=== PATIENT | female | born 1940 | race Caucasian/White ===

== ENCOUNTER 2017-09-04 07:07 | Inpatient (IN) | payer MEDICARE ==
[~2017-09-04] VITALS: Ht 167.6 cm; Wt 68.9 kg
[~2017-09-04 07:07] MED LIST: ATOR10TA PO; CIP500T PO; CYAN100023 PO; FOLI1TAB51 PO; TRIATAB3 PO
[2017-09-04 08:35] LABS: Basophils # (auto) 0 uL; Basophils % (auto) 0.5 % (0.0-2.0); Eosinophils # (auto) 0 uL; Eosinophils % (auto) 0.5 % (0.0-7.0); Hematocrit 43.5 % (36.0-46.0); Hemoglobin 14.7 g/dL (12.2-16.2); Lymphocytes % (auto) 15.1 % (10.0-50.0); Mean Corpuscular Hemoglobin 32.7 pg (28.0-32.0); Mean Corpuscular Hgb Conc. 33.7 g/dL (32.0-36.0); Monocytes # (auto) 0.5 uL; Monocytes % (auto) 7.3 % (0.0-12.0); Neutrophils # (auto) 5.1 uL; Neutrophils % (auto) 76.6 % (37.0-80.0); Platelet Count (auto) 272 10^3/uL (140-450); Red Blood Cells 4.49 10^6/uL (4.0-5.20); White Blood Cell 6.7 10^3/uL (4.4-10.8)
[2017-09-04 08:46] LABS: Albumin 3.6 g/dL (3.4-5.0); Calcium 9.5 mg/dL (8.5-10.1); Potassium 4.1 mmol/L (3.5-5.1)
[2017-09-04 08:47] LABS: Bilirubin, Total 0.4 mg/dL (0.2-1.0); Total Protein 7.2 g/dL (6.4-8.2)
[2017-09-04 08:54] LABS: Urine WBC None Seen /hpf (0 - 5)
[2017-09-04 09:06] LABS: Urine Bacteria NONE SEEN /hpf (None Seen); Urine Blood Negative /uL (Negative); Urine Specific Gravity 1.011 (1.001-1.035)
[2017-09-04] MEDS ORDERED: SODIUM CHLORIDE 0.9% 1,000 ML IV ONE ×2 (11:52)
[2017-09-04] MEDS ORDERED: VANCOMYCIN PER PHARMACY 0 MG IV SCH ×2 (12:00→13:45)
[2017-09-04] MEDS: VANCOMYCIN 750 MG in D5W 5% 250 ML IV SCH (13:00)
[2017-09-04] MEDS ORDERED: TEMAZEPAM 15 MG CAP PO PRN (13:45)
[2017-09-04] MEDS ORDERED: ONDANSETRON HCL 4 MG/2 ML VIAL IV PRN (13:45)
[2017-09-04] MEDS ORDERED: HYDROcodone-ACET 5/325MG TAB PO PRN (13:45)
[2017-09-04] MEDS ORDERED: LEVOFLOXACIN 500MG 100 ML IV ONE (13:45)
[2017-09-04] MEDS ORDERED: MORPHINE SULFATE 4 MG/ML SYR/VIAL IV PRN (13:45)
[2017-09-04 16:07] LABS: INR 1.04 (0.9-1.15); Prothrombin Time 11.3 sec (9.37-12.3)
[2017-09-04 17:00] VITALS: BP 138/80
[2017-09-04 17:11] VITALS: BP 138/80
[2017-09-04] MEDS: SODIUM CHLORIDE 0.9% 1,000 ML IV SCH (17:39)
[2017-09-04 20:00] VITALS: BP 146/72
[2017-09-04 22:00] VITALS: BP 146/72
[2017-09-04] MEDS: FAMOTIDINE 20 MG TAB PO SCH (22:20)
[2017-09-05 05:06] VITALS: BP 149/81
[2017-09-05 05:53] LABS: Basophils # (auto) 0 uL; Basophils % (auto) 0.5 % (0.0-2.0); Eosinophils # (auto) 0.1 uL; Hematocrit 39.2 % (36.0-46.0); Hemoglobin 13.4 g/dL (12.2-16.2); Lymphocytes # (auto) 1.4 uL; Mean Corpuscular Hemoglobin 33.1 pg (28.0-32.0); Mean Corpuscular Hgb Conc. 34.1 g/dL (32.0-36.0); Mean Corpuscular Volume 97.3 fL (80.0-100.0); Monocytes # (auto) 0.5 uL; Monocytes % (auto) 9.3 % (0.0-12.0); Neutrophils # (auto) 3.4 uL; Neutrophils % (auto) 62.2 % (37.0-80.0); Platelet Count (auto) 234 10^3/uL (140-450); Red Blood Cells 4.03 10^6/uL (4.0-5.20); Red Cell Distribution Width 13.9 % (11.8-14.3); White Blood Cell 5.5 10^3/uL (4.4-10.8)
[2017-09-05] MEDS: SODIUM CHLORIDE 0.9% 1,000 ML IV SCH ×2 (05:54→23:12)
[2017-09-05 06:22] LABS: Albumin 2.9 g/dL (3.4-5.0); BUN/Creatinine Ratio 16.4; Bilirubin, Total 0.5 mg/dL (0.2-1.0); Calcium 8.3 mg/dL (8.5-10.1); Potassium 3.5 mmol/L (3.5-5.1); Total Protein 6.1 g/dL (6.4-8.2)
[2017-09-05 06:33] LABS: Cholesterol 182 mg/dL (< 200); HDL Cholesterol 40 mg/dL (40-59); Triglycerides 148 mg/dL (< 150)
[2017-09-05] MEDS: VANCOMYCIN 750 MG in D5W 5% 250 ML IV SCH (06:44)
[2017-09-05 09:00] VITALS: BP 133/72
[2017-09-05] MEDS: LEVOFLOXACIN 500MG 100 ML IV SCH (10:03)
[2017-09-05] MEDS: TRIAMTERENE/HCTZ 37.5/25 MG CAP PO SCH (10:10)
[2017-09-05] MEDS: MULTIPLE VITAMIN TAB PO SCH (10:11)
[2017-09-05] MEDS: FAMOTIDINE 20 MG TAB PO SCH ×2 (10:11→22:05)
[2017-09-05] MEDS: ACETAMINOPHEN 325 MG TAB PO PRN ×2 (11:12→17:42)
[2017-09-05 13:36] VITALS: BP 141/73
[2017-09-05 16:44] VITALS: BP 137/77
[2017-09-05] MEDS ORDERED: GAB100C (17:43)
[2017-09-05] MEDS ORDERED: TRIA75TA55 (17:43)
[2017-09-05] MEDS ORDERED: LEVO-28 (17:43)
[2017-09-05] MEDS ORDERED: NITR1CAP36 (17:43)
[2017-09-05 20:00] VITALS: BP 147/81
[2017-09-05 22:00] VITALS: BP 147/81
[2017-09-06 05:46] VITALS: BP 156/80
[2017-09-06 09:06] VITALS: BP 143/76
[2017-09-06] MEDS: LEVOFLOXACIN 500MG 100 ML IV SCH (09:44)
[2017-09-06] MEDS: FAMOTIDINE 20 MG TAB PO SCH (09:46)
[2017-09-06] MEDS: TRIAMTERENE/HCTZ 37.5/25 MG CAP PO SCH (09:46)
[2017-09-06] MEDS: MULTIPLE VITAMIN TAB PO SCH (09:46)
[2017-09-06 12:40] VITALS: BP 159/86
== END 2017-09-06 14:40 | disposition home or self-care (01) | DRG 392 ==
LOC: ER 07:07 → OVERFLOW 07:08 → CENTRAL 14:46
PROVIDERS: ADMIT Internal Medicine; ATTEND Internal Medicine
DX: K57.32 Diverticulitis of large intestine without perforation or abscess without bleeding (principal); E78.5 Hyperlipidemia, unspecified; I12.9 Hypertensive chronic kidney disease with stage 1 through stage 4 chronic kidney disease, or unspecified chronic kidney disease; M19.90 Unspecified osteoarthritis, unspecified site; N18.2 Chronic kidney disease, stage 2 (mild); Z90.710 Acquired absence of both cervix and uterus; Z88.0 Allergy status to penicillin; Z88.8 Allergy status to other drugs, medicaments and biological substances
CPT/HCPCS: 36415; 74176; 80053; 81001; 82465; 83605; 83718; 84478; 85025; 85610; 87040; 93005; 96361; 96374; 96375; J1956; J7060

== ENCOUNTER → 2018-01-25 | Outpatient (CLI) | payer MEDICARE ==
[~2018-01-25] MED LIST changes: -CIP500T PO; +GAB100C; +TRIA75TA55; -TRIATAB3 PO
== END | disposition home or self-care (01) ==
LOC: XYW 08:47
PROVIDERS: ATTEND Internal Medicine
DX: R94.31 Abnormal electrocardiogram [ECG] [EKG] (principal); I12.9 Hypertensive chronic kidney disease with stage 1 through stage 4 chronic kidney disease, or unspecified chronic kidney disease; N18.3 Chronic kidney disease, stage 3 (moderate); E78.5 Hyperlipidemia, unspecified
CPT/HCPCS: 93306

== ENCOUNTER 2018-07-01 07:29 | Emergency (ER) | payer MEDICARE ==
[~2018-07-01] VITALS: Ht 167.6 cm; Wt 67.6 kg
[2018-07-01 08:05] LABS: Urine WBC None Seen /hpf (0 - 5)
[2018-07-01 08:17] LABS: Basophils # (auto) 0 uL; Basophils % (auto) 0.3 % (0.0-2.0); Eosinophils # (auto) 0.1 uL; Hematocrit 44.9 % (36.0-46.0); Hemoglobin 14.6 g/dL (12.2-16.2); Lymphocytes # (auto) 1.1 uL; Lymphocytes % (auto) 15.8 % (10.0-50.0); Mean Corpuscular Hemoglobin 31.9 pg (28.0-32.0); Mean Corpuscular Hgb Conc. 32.6 g/dL (32.0-36.0); Monocytes # (auto) 0.7 uL; Monocytes % (auto) 9.8 % (0.0-12.0); Neutrophils # (auto) 5.1 uL; Neutrophils % (auto) 73.1 % (37.0-80.0); Platelet Count (auto) 254 10^3/uL (140-450); Red Blood Cells 4.58 10^6/uL (4.0-5.20); Red Cell Distribution Width 15.5 % (11.8-14.3); White Blood Cell 6.9 10^3/uL (4.4-10.8)
[2018-07-01 08:20] LABS: Urine Bacteria NONE SEEN /hpf (None Seen); Urine Blood Negative /uL (Negative); Urine Specific Gravity 1.004 (1.001-1.035)
[2018-07-01] MEDS ORDERED: SODIUM CHLORIDE 0.9% 500 ML IVB ONE (08:24)
[2018-07-01] MEDS ORDERED: SODIUM CHLORIDE 0.9% 1,000 ML IV ONE (08:24)
[2018-07-01] MEDS ORDERED: MORPHINE SULFATE 10 MG/ML INJ 1ML SDV IV ONE (08:30)
[2018-07-01] MEDS ORDERED: cefTRIAXone 1GM/50ML D5W 50 ML IV ONE (08:30)
[2018-07-01] MEDS ORDERED: PROMETHAZINE HCL 25 MG/ML 1ML IV PRN (08:30)
[2018-07-01 08:33] LABS: Alanine Aminotransferase 22 U/L (13-56); Albumin 3.7 g/dL (3.4-5.0); Anion Gap 7 (5-15); Aspartate Aminotransferase 13 U/L (15-37); BUN/Creatinine Ratio 9.5; Blood Urea Nitrogen 11 mg/dL (7-18); Calcium 9.2 mg/dL (8.5-10.1); Carbon Dioxide 28 mmol/L (21-32); Chloride 102 mmol/L (98-107); GFR African American 58 mL/min; GFR Non-African American 48 mL/min; Glucose 111 mg/dL (74-106); Potassium 3.9 mmol/L (3.5-5.1); Sodium 137 mmol/L (136-145)
[2018-07-01 08:38] LABS: Alkaline Phosphatase 91 U/L (45-117); Bilirubin, Total 0.4 mg/dL (0.2-1.0); Total Protein 7.9 g/dL (6.4-8.2)
[2018-07-01 09:04] VITALS: BP 141/79
[2018-07-01 09:30] LABS: Magnesium 2.5 mg/dL (1.6-2.6)
== END 2018-07-01 10:35 | disposition home or self-care (01) ==
LOC: ER 07:29
DX: K57.92 Diverticulitis of intestine, part unspecified, without perforation or abscess without bleeding (principal); I10 Essential (primary) hypertension; E78.5 Hyperlipidemia, unspecified; Z90.710 Acquired absence of both cervix and uterus; Z88.0 Allergy status to penicillin
CPT/HCPCS: 36415; 71046; 74176; 80053; 81001; 83690; 83735; 84443; 84484; 85025; 93005; 94761; 96365; 99284; J0696; J2270; J7030; J7040

== ENCOUNTER 2020-05-07 07:56 | Inpatient (IN) | payer MEDICARE ==
[~2020-05-07] VITALS: Ht 167.6 cm; Wt 67.7 kg
[2020-05-07] MEDS ORDERED: methylPREDNISolone SOD SUCC 125 MG/2 ML VL IV ONE (09:45)
[2020-05-07] MEDS ORDERED: ZINC SULFATE 220mg CAP or TAB PO ONE (09:45)
[2020-05-07] MEDS ORDERED: ASCORBIC ACID 500 MG TAB PO ONE (09:45)
[2020-05-07 10:05] LABS: Basophils # (auto) 0 10 ^3/uL (0-0.2); Basophils % (auto) 0.5 % (0.0-2.0); Eosinophils # (auto) 0 10 ^3/uL (0-0.8); Hemoglobin 15.2 g/dL (12.2-16.2); Lymphocytes # (auto) 0.7 10 ^3/uL (0.4-5.4); Mean Corpuscular Hgb Conc. 33.8 g/dL (32.0-36.0); Mean Corpuscular Volume 97.8 fL (80.0-100.0); Monocytes # (auto) 0.5 10 ^3/uL (0-1.3); Monocytes % (auto) 9.7 % (0.0-12.0); Neutrophils # (auto) 3.8 10 ^3/uL (1.6-8.6); Neutrophils % (auto) 75.8 % (37.0-80.0); Nucleated Red Blood Cells % 0.3 %; Platelet Count (auto) 187 10^3/uL (140-450); Red Cell Distribution Width 13.9 % (11.8-14.3)
[2020-05-07 10:25] LABS: Albumin 3.7 g/dL (3.4-5.0); Calcium 9.1 mg/dL (8.5-10.1); Potassium 3.9 mmol/L (3.5-5.1)
[2020-05-07 10:31] LABS: BUN/Creatinine Ratio 24.4; Bilirubin, Total 0.4 mg/dL (0.2-1.0); Total Protein 7.4 g/dL (6.4-8.2)
[2020-05-07] MEDS ORDERED: NITROGLYCERIN 0.4 MG SL TAB SL PRN (11:30)
[2020-05-07] MEDS ORDERED: MORPHINE SULF INJ 2 MG/ML SYRINGE 1ML IV PRN (11:30)
[2020-05-07] MEDS ORDERED: SODIUM CHLORIDE 0.9% 1,000 ML IV SCH (11:30)
[2020-05-07] MEDS ORDERED: ATOR40TA52 PO (12:10)
[2020-05-07] MEDS ORDERED: ZINC220C8 PO (12:10)
[2020-05-07] MEDS ORDERED: TURM500C3 PO (12:10)
[2020-05-07] MEDS ORDERED: LOSA-69 PO (12:10)
[2020-05-07] MEDS ORDERED: IBUP200C3 PO (12:10)
[2020-05-07] MEDS ORDERED: AMLO-483 PO (12:10)
--- NOTE | 2020-05-07 12:50 | NUR ---
Telemetry admit from [facility] GIVENSGEORGE Ram admitted to Telemetry unit after SBAR received. Patient oriented to Arielle Fletcher, primary RN, unit, room, bed, and unit policies regarding patient care and visiting hours. Patient now on continuous telemetry monitoring, tele box #4 and telemetry reading on arrival to unit is SR @ 76. Bed set to lowest position/locked, bedside rails up x2, call light within reach. Instructed patient to call for assistance. Will continue to monitor q1hr and prn.
[2020-05-07 12:54] VITALS: BP 154/81
[2020-05-07 13:00] VITALS: BP 154/81
[2020-05-07 17:00] VITALS: BP 137/79
--- NOTE | 2020-05-07 19:10 | NUR ---
OPENING NOTE- NOC SHIFT ASSUMED PATIENT CARE. PATIENT IS ALERT AND ORIENTED X4, ANSWERS IN COMPLETE SENTENCES AND MAKES APPROPRIATE EYE CONTACT. PATIENT IS RESTING IN BED. BED IS LOCKED AT LOWEST POSITION, BED RAILS UP X2 AND HEAD OF BED IS UP >30 DEGREES. DISCUSSED POC WITH PATIENT AND INSTRUCTED PATIENT TO CALL USING CALL LIGHT PRN. BEDSIDE TALBE WITHIN REACH, CALL LIGHT WITHIN REACH. PATIENT DENIES SOB OR PAIN. PATIENT STATES THAT SHE IS "MORE WORRIED" ABOUT HER SON WHO IS SHARING A ROOM WITH HER AN WHOM IS ALSO ADMITTED. WILL CONTINUE TO MONITOR Q1H AND PRN.
[2020-05-07 20:00] VITALS: BP 116/65
[2020-05-07 22:00] VITALS: BP 116/65
[2020-05-07] MEDS: DOXYCYCLINE 100MG/250ML 250 ML IV SCH (22:04)
--- NOTE | 2020-05-07 22:10 | NUR ---
PATIENT UP TO BATHROOM. PATIENT AMBULATES INDEPENDENTLY. STEADY GAIT NOTED.
[2020-05-08 05:00] VITALS: BP 133/66
[2020-05-08 05:56] LABS: Basophils # (auto) 0 10 ^3/uL (0-0.2); Eosinophils # (auto) 0 10 ^3/uL (0-0.8); Hematocrit 42.6 % (36.0-46.0); Hemoglobin 14.2 g/dL (12.2-16.2); Lymphocytes # (auto) 0.7 10 ^3/uL (0.4-5.4); Lymphocytes % (auto) 17.1 % (10.0-50.0); Mean Corpuscular Hemoglobin 32.7 pg (28.0-32.0); Mean Corpuscular Hgb Conc. 33.2 g/dL (32.0-36.0); Mean Corpuscular Volume 98.4 fL (80.0-100.0); Monocytes # (auto) 0.5 10 ^3/uL (0-1.3); Monocytes % (auto) 11.2 % (0.0-12.0); Neutrophils # (auto) 3.1 10 ^3/uL (1.6-8.6); Neutrophils % (auto) 71.7 % (37.0-80.0); Nucleated Red Blood Cells % 0.1 %; Platelet Count (auto) 198 10^3/uL (140-450); Red Blood Cells 4.33 10^6/uL (4.0-5.20); Red Cell Distribution Width 13.8 % (11.8-14.3); White Blood Cell 4.3 10^3/uL (4.4-10.8)
[2020-05-08 06:14] LABS: Potassium 4.5 mmol/L (3.5-5.1)
[2020-05-08 06:27] LABS: Albumin 3.1 g/dL (3.4-5.0); BUN/Creatinine Ratio 30.5; Bilirubin, Total 0.3 mg/dL (0.2-1.0); Calcium 8.8 mg/dL (8.5-10.1); Total Protein 6.6 g/dL (6.4-8.2)
[2020-05-08 09:00] VITALS: BP 126/78
[2020-05-08] MEDS: ASCORBIC ACID 1,000 MG TAB PO SCH (09:23)
[2020-05-08] MEDS: ZINC SULFATE 220mg CAP or TAB PO SCH (09:23)
[2020-05-08] MEDS: DOXYCYCLINE 100MG/250ML 250 ML IV SCH ×2 (09:23→22:52)
[2020-05-08] MEDS: CHOLECALCIFEROL (VITD3) 2,000 UNIT CAP PO SCH (09:23)
[2020-05-08] MEDS: ENOXAPARIN SOD 40 MG/0.4 ML SYRINGE SC SCH (09:24)
[2020-05-08] MEDS: ACETAMINOPHEN 500 MG TAB PO PRN ×2 (09:24→15:33)
[2020-05-08 13:00] VITALS: BP 114/68
[2020-05-08] MEDS ORDERED: IOHEXOL 350 MG/ML 100ML IJ ONE (13:56)
--- NOTE | 2020-05-08 15:00 | NUR ---
NEW 2O G IV insertion IV access obtained, via clean sterile technique by inserting 20 gauge catheter at RIGHT FOREARM after 1 attempt(s). IV secured properly. No trauma to site. Patient tolerated well.IV FOR CT ANGIO OF CHEST WITH CONTRAST
[2020-05-08] MEDS ORDERED: DEXTROSE (50%) 50ML SYRG IV PRN (15:30)
[2020-05-08] MEDS ORDERED: DexAMETHasone SOD PHOS 10MG/1ML VIAL INJ IV ONE (15:30)
[2020-05-08 17:00] VITALS: BP 141/74
[2020-05-08] MEDS: InsuLIN REG 1unit/0.01ml Soln (100units/ml) SC SCH ×2 (17:00→23:14)
--- NOTE | 2020-05-08 17:30 | NUR ---
CT ANGIO PATIENT TRANSPORTED VIA WC TO RADIOLOGY NO DISTRESS.
--- NOTE | 2020-05-08 17:45 | NUR ---
RETURNED FROM CT ANGIO PATIENT TOLERATED WELL, DENIED PAIN, NO DISTRESS.
[2020-05-08] MEDS: ACCU-CHEK COMFORT CURVE STRIP VI SCH ×2 (18:59→22:00)
[2020-05-08 20:00] VITALS: BP 134/69
[2020-05-08 22:00] VITALS: BP 134/69
[2020-05-08] MEDS: BUDESONIDE (INHALATION) 180 MCG IH IN SCH (22:07)
[2020-05-08] MEDS: ALBUTEROL SULF HFA 90MCG INH 200DOSE IN SCH (22:07)
[2020-05-09] VITALS (7 sets, daily range): BP systolic 118–141; BP diastolic 69–74
--- NOTE | 2020-05-09 03:36 | NUR ---
Patient is resting in bed with eyes closed, no distress note, on 2LNC saturating at 96%. Patient denies pain.
[2020-05-09] MEDS: ACCU-CHEK COMFORT CURVE STRIP VI SCH ×4 (06:50→21:43)
[2020-05-09] MEDS: InsuLIN REG 1unit/0.01ml Soln (100units/ml) SC SCH ×4 (06:55→21:46)
[2020-05-09 07:17] LABS: Albumin 2.9 g/dL (3.4-5.0); BUN/Creatinine Ratio 25.3; Bilirubin, Total 0.4 mg/dL (0.2-1.0); Calcium 8.4 mg/dL (8.5-10.1); Total Protein 6.4 g/dL (6.4-8.2)
[2020-05-09] MEDS: BUDESONIDE (INHALATION) 180 MCG IH IN SCH ×2 (08:58→22:02)
[2020-05-09] MEDS: ALBUTEROL SULF HFA 90MCG INH 200DOSE IN SCH ×3 (08:58→22:02)
[2020-05-09] MEDS: DOXYCYCLINE 100MG/250ML 250 ML IV SCH ×2 (09:49→21:43)
[2020-05-09] MEDS: ZINC SULFATE 220mg CAP or TAB PO SCH (09:49)
[2020-05-09] MEDS: DexAMETHasone SOD PHOS 10MG/1ML VIAL INJ IV SCH (09:49)
[2020-05-09] MEDS: CHOLECALCIFEROL (VITD3) 2,000 UNIT CAP PO SCH (09:50)
[2020-05-09] MEDS: ENOXAPARIN SOD 40 MG/0.4 ML SYRINGE SC SCH (09:50)
[2020-05-09] MEDS: PANTOPRAZOLE 40 MG TAB PO SCH (09:50)
[2020-05-09] MEDS: ASCORBIC ACID 1,000 MG TAB PO SCH (09:50)
[2020-05-09] MEDS: ACETAMINOPHEN 500 MG TAB PO PRN (10:11)
[2020-05-09] MEDS ORDERED: POTASSIUM CHL 10 Meq TABLET PO ONE (12:45)
[2020-05-09] MEDS ORDERED: FUROSEMIDE 20 MG/2 ML VIAL IV ONE (12:45)
[2020-05-09] MEDS ORDERED: REMDESIVIR 200 MG in NS 210ml LOADING DOSE ADULT IV ONE (17:00)
--- NOTE | 2020-05-09 17:45 | NUR ---
PRE-INFUSION VITAL SIGNS BP 118/70 HR 79
--- NOTE | 2020-05-09 18:00 | NUR ---
15 MINUTE INFUSION VITAL SIGNS BP 123/79 HR 62
--- NOTE | 2020-05-09 18:45 | NUR ---
LATE ENTRY POST-INFUSION VITAL SIGNS BP 140/81 HR0 69
--- NOTE | 2020-05-09 19:30 | NUR ---
Opening Shift Note Received report from jacob Whitten RN. Assumed care of patient, awake and alert. No S/S of distress/SOB or pain. Instructed on POC and to call for assist PRN, will continue to monitor for changes Q1hr and PRN. Bed placed in lowest position, bed alarm turned on and call light within reach.
[2020-05-10] VITALS (8 sets, daily range): BP systolic 137–149; BP diastolic 71–80
--- NOTE | 2020-05-10 01:07 | NUR ---
Plasma infusion started. Vitals are 149/80, 59 heart rate, 94% on 2LNC, 16 resp and 98.3 temp. Patient is resting supine in bed, no distress noted.
--- NOTE | 2020-05-10 02:35 | NUR ---
Plasma infused. No adverse reactions noted. Patient tolerated well. Patient resting in bed alert and awake. No distress noted and patient denies pain
[2020-05-10] MEDS: InsuLIN REG 1unit/0.01ml Soln (100units/ml) SC SCH ×2 (06:56→11:30)
[2020-05-10] MEDS: ACCU-CHEK COMFORT CURVE STRIP VI SCH ×2 (06:56→11:30)
[2020-05-10] MEDS: ALBUTEROL SULF HFA 90MCG INH 200DOSE IN SCH ×3 (07:08→22:50)
[2020-05-10] MEDS: BUDESONIDE (INHALATION) 180 MCG IH IN SCH ×2 (07:09→22:50)
--- NOTE | 2020-05-10 07:46 | NUR ---
Opening Shift Note Assumed care of patient, awake and alert. No S/S of distress/SOB or pain. Instructed on POC and to call for assist PRN, will continue to monitor for changes Q1hr and PRN. Bed placed in lowest position, bed alarm turned on and call light within reach.
[2020-05-10] MEDS: ZINC SULFATE 220mg CAP or TAB PO SCH (10:00)
[2020-05-10] MEDS: POTASSIUM CHL 10 Meq TABLET PO SCH (10:10)
[2020-05-10] MEDS: FUROSEMIDE 20 MG/2 ML VIAL IV SCH (10:10)
[2020-05-10] MEDS: PANTOPRAZOLE 40 MG TAB PO SCH (10:10)
[2020-05-10] MEDS: DexAMETHasone SOD PHOS 10MG/1ML VIAL INJ IV SCH (10:10)
[2020-05-10] MEDS: CHOLECALCIFEROL (VITD3) 2,000 UNIT CAP PO SCH (10:10)
[2020-05-10] MEDS: ASCORBIC ACID 1,000 MG TAB PO SCH (10:11)
[2020-05-10] MEDS: ENOXAPARIN SOD 40 MG/0.4 ML SYRINGE SC SCH (10:11)
[2020-05-10] MEDS: DOXYCYCLINE 100MG/250ML 250 ML IV SCH ×2 (10:12→21:23)
--- NOTE | 2020-05-10 12:46 | NUR ---
Nutrition Assessment Est energy needs [id number] kcal (25-30 kcal/kg BW 68.5kg) Est protein needs 55-69g (0.8-1g/kg BW 68.5kg) Will monitor and reassess prn. Addendum: 05/10/20 at [address] Amended: Links added.
[2020-05-10] MEDS: REMDESIVIR 100mg in NS 230ml DAILYx4DAYS (NO VENT) IV SCH (17:01)
--- NOTE | 2020-05-10 17:01 | NUR ---
PRE-INFUSION VITAL SIGNS BP 140/87 HR 76
--- NOTE | 2020-05-10 17:16 | NUR ---
15 MINUTE INFUSION VITAL SIGNS BP 133/69 HR 67
--- NOTE | 2020-05-10 18:05 | NUR ---
POST-INFUSION VITAL SIGNS BP 135/88 HR0 74
[2020-05-11] VITALS (7 sets, daily range): BP systolic 118–157; BP diastolic 62–81
[2020-05-11] MEDS: BUDESONIDE (INHALATION) 180 MCG IH IN SCH ×2 (06:41→21:35)
[2020-05-11] MEDS: ALBUTEROL SULF HFA 90MCG INH 200DOSE IN SCH ×3 (06:41→21:35)
[2020-05-11 07:40] LABS: Basophils # (auto) 0 10 ^3/uL (0-0.2); Basophils % (auto) 0.1 % (0.0-2.0); Eosinophils # (auto) 0 10 ^3/uL (0-0.8); Lymphocytes # (auto) 1.1 10 ^3/uL (0.4-5.4); Lymphocytes % (auto) 24.7 % (10.0-50.0); Mean Corpuscular Hemoglobin 33.3 pg (28.0-32.0); Mean Corpuscular Hgb Conc. 34.2 g/dL (32.0-36.0); Mean Corpuscular Volume 97.4 fL (80.0-100.0); Monocytes # (auto) 0.6 10 ^3/uL (0-1.3); Monocytes % (auto) 14.3 % (0.0-12.0); Neutrophils # (auto) 2.6 10 ^3/uL (1.6-8.6); Neutrophils % (auto) 60.9 % (37.0-80.0); Nucleated Red Blood Cells % 0.1 %; Platelet Count (auto) 225 10^3/uL (140-450); Red Blood Cells 4.21 10^6/uL (4.0-5.20); Red Cell Distribution Width 13.5 % (11.8-14.3); White Blood Cell 4.3 10^3/uL (4.4-10.8)
--- NOTE | 2020-05-11 08:00 | NUR ---
ASSESSMENT NOTE PT IS ALERT ORIENTED X4, RESTING IN BED COMFORTABLY, NO DISTRESS NOTED, ABLE TO VERBALIS HER NEEDS, AND SELF REPOSITION, OXYGEN 2 L NC, PAIN 0/10 AT THIS TIME, CALL LIGHT WITHIN .
[2020-05-11 08:26] LABS: Albumin 2.9 g/dL (3.4-5.0); Calcium 8.7 mg/dL (8.5-10.1); Potassium 3.7 mmol/L (3.5-5.1)
[2020-05-11 08:30] LABS: BUN/Creatinine Ratio 31.6; Bilirubin, Total 0.4 mg/dL (0.2-1.0); Total Protein 6.3 g/dL (6.4-8.2)
[2020-05-11] MEDS: DexAMETHasone SOD PHOS 10MG/1ML VIAL INJ IV SCH (10:06)
[2020-05-11] MEDS: FUROSEMIDE 20 MG/2 ML VIAL IV SCH (10:06)
[2020-05-11] MEDS: POTASSIUM CHL 10 Meq TABLET PO SCH (10:07)
[2020-05-11] MEDS: PANTOPRAZOLE 40 MG TAB PO SCH (10:07)
[2020-05-11] MEDS: DOXYCYCLINE 100MG/250ML 250 ML IV SCH ×2 (10:07→21:12)
[2020-05-11] MEDS: ASCORBIC ACID 1,000 MG TAB PO SCH (10:07)
[2020-05-11] MEDS: ZINC SULFATE 220mg CAP or TAB PO SCH (10:07)
[2020-05-11] MEDS: ENOXAPARIN SOD 40 MG/0.4 ML SYRINGE SC SCH (10:08)
[2020-05-11] MEDS: CHOLECALCIFEROL (VITD3) 2,000 UNIT CAP PO SCH (10:08)
--- NOTE | 2020-05-11 12:40 | NUR ---
DR OLIVEIRA AT BED SIDE FOLLOWING UP ON PT, PT IS ON ROOM AIR SAT AT 96 %, NO DISTRESS NOTED
[2020-05-11] MEDS: REMDESIVIR 100mg in NS 230ml DAILYx4DAYS (NO VENT) IV SCH (16:42)
--- NOTE | 2020-05-11 17:42 | NUR ---
PT TOLERATED THE REMEDISIVIR WELL, CONTINUE MONITORING
--- NOTE | 2020-05-11 18:41 | NUR ---
PT CONTINUE STABLE, CONTINUE MONITORING
--- NOTE | 2020-05-11 19:30 | NUR ---
OPENING NOTE Received report from day shift RN. Patient is currently resting at this time. Patient is on RA. NO s/s of distress or discomfort is noted. Will educate patient on POC. Bed is in lowest/locked position with side rails up X's 2 and call light is within reach of patient. Will continue care.
[2020-05-12 05:00] VITALS: BP 139/74
--- NOTE | 2020-05-12 05:42 | NUR ---
IV insertion IV access obtained, via clean sterile technique by inserting 22 gauge catheter at LEFT WRIST after SINGLE ATTEMPT. IV secured properly. No trauma to site. Patient tolerated procedure well. OLD 20G IV TO RIGHT FA WAS BOTHERING PATIENT. THIS IV WAS REMOVED. CATHETER FULLY INTACT. NO TRAUMA NOTED TO SITE. GAUZE APPLIED.
[2020-05-12] MEDS: BUDESONIDE (INHALATION) 180 MCG IH IN SCH ×2 (07:14→22:08)
[2020-05-12] MEDS: ALBUTEROL SULF HFA 90MCG INH 200DOSE IN SCH ×3 (07:14→22:08)
[2020-05-12 07:21] LABS: Basophils # (auto) 0 10 ^3/uL (0-0.2); Eosinophils # (auto) 0 10 ^3/uL (0-0.8); Hematocrit 42.7 % (36.0-46.0); Hemoglobin 14.5 g/dL (12.2-16.2); Lymphocytes # (auto) 1.1 10 ^3/uL (0.4-5.4); Lymphocytes % (auto) 22.2 % (10.0-50.0); Mean Corpuscular Hgb Conc. 33.9 g/dL (32.0-36.0); Mean Corpuscular Volume 97.3 fL (80.0-100.0); Monocytes # (auto) 0.6 10 ^3/uL (0-1.3); Monocytes % (auto) 12.7 % (0.0-12.0); Neutrophils # (auto) 3.2 10 ^3/uL (1.6-8.6); Neutrophils % (auto) 65.1 % (37.0-80.0); Nucleated Red Blood Cells % 0.2 %; Platelet Count (auto) 256 10^3/uL (140-450); Red Blood Cells 4.39 10^6/uL (4.0-5.20); Red Cell Distribution Width 13.7 % (11.8-14.3)
[2020-05-12 07:33] LABS: Calcium 8.7 mg/dL (8.5-10.1); Potassium 3.6 mmol/L (3.5-5.1)
[2020-05-12 07:37] LABS: Albumin 3.1 g/dL (3.4-5.0); BUN/Creatinine Ratio 31.3
[2020-05-12 07:46] LABS: Bilirubin, Total 0.6 mg/dL (0.2-1.0); Total Protein 6.4 g/dL (6.4-8.2)
[2020-05-12 08:00] VITALS: BP 128/69
--- NOTE | 2020-05-12 08:00 | NUR ---
ASSESSMENT NOTE PT IS ALERT ORIENTED X4, RESTING IN BED COMFORTABLY, NO DISTRESS NOTED, ABLE TO VERBALIS HER NEEDS, AND SELF REPOSITION, ROOM AIR SAT AT 93%, PAIN 0/10 AT THIS TIME, CALL LIGHT WITHIN
[2020-05-12 09:00] VITALS: BP 147/81
[2020-05-12] MEDS: DexAMETHasone SOD PHOS 10MG/1ML VIAL INJ IV SCH (09:50)
--- NOTE | 2020-05-12 09:50 | NUR ---
OXYGEN ARRANGEMENT ORDER NOTED, SPOKE WITH DR FAIRBANKS, MADE AWARE THAT PT ON ROOM AIR, SAID ITS FOR TOMORROW DISCHARGE HOME, AND WE WILL REASSESS
[2020-05-12] MEDS: FUROSEMIDE 20 MG/2 ML VIAL IV SCH (09:51)
[2020-05-12] MEDS: POTASSIUM CHL 10 Meq TABLET PO SCH (09:51)
[2020-05-12] MEDS: ZINC SULFATE 220mg CAP or TAB PO SCH (09:51)
[2020-05-12] MEDS: DOXYCYCLINE 100MG/250ML 250 ML IV SCH (09:51)
[2020-05-12] MEDS: PANTOPRAZOLE 40 MG TAB PO SCH (09:51)
[2020-05-12] MEDS: CHOLECALCIFEROL (VITD3) 2,000 UNIT CAP PO SCH (09:52)
[2020-05-12] MEDS: ENOXAPARIN SOD 40 MG/0.4 ML SYRINGE SC SCH (09:52)
[2020-05-12] MEDS: ASCORBIC ACID 1,000 MG TAB PO SCH (09:52)
[2020-05-12 13:00] VITALS: BP 117/68
--- NOTE | 2020-05-12 16:32 | NUR ---
SS consult for home Oxygen. Faxed clinical information and order to [facility] ( [phone]). Order received and portable tank to be delivered to bedside today and concentrator to the home upon discharge. Pt resides with her son and daughter in law in daughters home. Pt functioned independently prior to admission and managed her own ADL's. No further social service concerns or issues.
[2020-05-12 16:39] VITALS: BP 121/64
[2020-05-12] MEDS: REMDESIVIR 100mg in NS 230ml DAILYx4DAYS (NO VENT) IV SCH (16:45)
--- NOTE | 2020-05-12 16:46 | NUR ---
REMEDISIVIR INITIATED VS ARE TAKEN
--- NOTE | 2020-05-12 17:00 | NUR ---
OXYGEN SUPPLIES CALLED, SAID THAT HE NEED TO SET UP TH EOXYGEN INSIDE THE HOUSE, PT GAVE ME HER SON SINDHU PHONE NUMBER TO BE CONTACTED
--- NOTE | 2020-05-12 18:07 | NUR ---
PT CONTINUE STABLE, CONTINUE MONITORING
[2020-05-12 22:00] VITALS: BP 127/79
[2020-05-13 05:00] VITALS: BP 130/72
[2020-05-13] MEDS: ALBUTEROL SULF HFA 90MCG INH 200DOSE IN SCH ×2 (06:58→14:35)
[2020-05-13] MEDS: BUDESONIDE (INHALATION) 180 MCG IH IN SCH (06:58)
--- NOTE | 2020-05-13 07:08 | NUR ---
closing note pt resting in left lateral position. no c/o pain or discomfort. pt on room air. endorsed care to day shift ELI Chapman.
--- NOTE | 2020-05-13 07:30 | NUR ---
Opening Shift Note Assumed patient care from NOC RN. Patient currently sitting up in bed, feet dangling. No signs of distress at this time. Respirations even and unlabored. Safety precautions in place, will continue to monitor q1hr and PRN.
[2020-05-13 07:37] LABS: Calcium 8.8 mg/dL (8.5-10.1); Potassium 3.4 mmol/L (3.5-5.1)
[2020-05-13 07:47] LABS: BUN/Creatinine Ratio 33.7; Bilirubin, Total 0.6 mg/dL (0.2-1.0); Total Protein 6.4 g/dL (6.4-8.2)
[2020-05-13 08:37] VITALS: BP 136/65
[2020-05-13] MEDS: FUROSEMIDE 20 MG/2 ML VIAL IV SCH (09:59)
[2020-05-13] MEDS: DexAMETHasone SOD PHOS 10MG/1ML VIAL INJ IV SCH (09:59)
[2020-05-13] MEDS: POTASSIUM CHL 10 Meq TABLET PO SCH (09:59)
[2020-05-13] MEDS: PANTOPRAZOLE 40 MG TAB PO SCH (10:00)
[2020-05-13] MEDS: ZINC SULFATE 220mg CAP or TAB PO SCH (10:00)
[2020-05-13] MEDS: ASCORBIC ACID 1,000 MG TAB PO SCH (10:00)
[2020-05-13] MEDS: ENOXAPARIN SOD 40 MG/0.4 ML SYRINGE SC SCH (10:01)
[2020-05-13] MEDS: CHOLECALCIFEROL (VITD3) 2,000 UNIT CAP PO SCH (10:01)
--- NOTE | 2020-05-13 10:52 | NUR ---
at Bedside Dr. Coronado at bedside discussing plan of care with patient. Per MD, patient to receive last dose of Remdesivir prior to discharge.
--- NOTE | 2020-05-13 11:11 | NUR ---
Nutrition Followup Note Wt: 67.7 kg Pt was in isolation for covid. per pt on phone no N.V with good appetite. pt is currently on regular diet with adequate PO of 75% x 6 per RN doc Est energy needs [id number] kcal (25-30 kcal/kg BW 68.5kg) Est protein needs 55-69g (0.8-1g/kg BW 68.5kg) Will monitor and reassess prn. LABS: BUN 32 H ALB 3.0 L GI: Pt had 2 BM today per RN doc BS: 21 low risk. Refer to wound assessment report for further details. PES: Resolved: Inadequate oral intake aeb pt with 40% po intake per RN note r/t current medical condition Comments Will continue to monitor PO status, skin status, pertinent labs and weight trends. Will f/u in 3-5 days 1) Continue current plan of care
[2020-05-13] MEDS ORDERED: POTASSIUM CHL 20 Meq TABLET PO ONE (11:30)
[2020-05-13] MEDS ORDERED: ASCO10003 PO (11:39)
[2020-05-13] MEDS ORDERED: METH4PAK PO (11:39)
[2020-05-13] MEDS ORDERED: ZINC220T6 PO (11:39)
[2020-05-13] MEDS ORDERED: ALBUAER3 IN (11:39)
[2020-05-13] MEDS ORDERED: PANT40TA2 PO (11:39)
[2020-05-13 13:00] VITALS: BP 109/72
[2020-05-13 14:50] VITALS: BP 109/72
--- NOTE | 2020-05-13 15:30 | NUR ---
Remdesivir Medication administered. Start BP 119/64 HR 62
[2020-05-13] MEDS: REMDESIVIR 100mg in NS 230ml DAILYx4DAYS (NO VENT) IV SCH (15:32)
--- NOTE | 2020-05-13 15:41 | NUR ---
IV Discontinued IV began to leak during administration. Patient refusing new IV at this time, understands the risks and need for access for continued Remdesivir. Patient verbalized understanding, continues to refuse at this time.
--- NOTE | 2020-05-13 17:00 | NUR ---
Discharge Discharge instructions given as ordered. Encourage to follow up with PMD as instructed. All questions and concerns addressed. Patient verbalized understanding. Medication reconciliation form completed and copy given to patient. IV removed with catheter intact, pressure dressing applied. Telemetry unit returned to ICU. Patient taken to vehicle via wheelchair with all personal belongings, accompanied by staff. No distress noted at time of departure. Patient provided with discharge instructions including CT report per Dr. Coronado request-patient instructed to follow up with ultrasound once cleared by PCP (as outpatient). Patient discharged with oxygen tank and per patient more equipment had been delivered to her home. Patient verbalized understanding of teaching.
== END 2020-05-13 17:00 | disposition home or self-care (01) | DRG 177 ==
LOC: ER 07:56 → TELE 07:57 → TELE-EAST 12:46
PROVIDERS: ADMIT Nurse Practitioner Acute Care; ATTEND Internal Medicine
PROC: XW033E5 Introduction of Remdesivir Anti-infective into Peripheral Vein, Percutaneous Approach, New Technology Group 5 (ICD-10-PCS; 2020-05-09)
PROC: XW13325 Transfusion of Convalescent Plasma (Nonautologous) into Peripheral Vein, Percutaneous Approach, New Technology Group 5 (ICD-10-PCS; principal; 2020-05-10)
DX: U07.1 COVID-19 (principal); J12.89 Other viral pneumonia; J96.01 Acute respiratory failure with hypoxia; E78.5 Hyperlipidemia, unspecified; K57.90 Diverticulosis of intestine, part unspecified, without perforation or abscess without bleeding; M19.90 Unspecified osteoarthritis, unspecified site; I12.9 Hypertensive chronic kidney disease with stage 1 through stage 4 chronic kidney disease, or unspecified chronic kidney disease; Z96.652 Presence of left artificial knee joint; N18.30 Chronic kidney disease, stage 3 unspecified; Z90.710 Acquired absence of both cervix and uterus; Z79.51 Long term (current) use of inhaled steroids; Z88.0 Allergy status to penicillin; Z88.8 Allergy status to other drugs, medicaments and biological substances; E04.1 Nontoxic single thyroid nodule
CPT/HCPCS: 36415; 71045; 71275; 80053; 80061; 82728; 82962; 83615; 83735; 84443; 85025; 85379; 86141; 86850; 86900; 86901; 87426; 87804; 93005; 94640; 96361; 96365; 96375; 97163; G0378; J1100; J1815; J3490